=== PATIENT | male | born 1965 | race African-American/Black ===

== ENCOUNTER 2021-02-15 11:29 | Inpatient (IN) | payer BC ==
[2021-02-15 12:28] VITALS: BMI 29.0
[2021-02-15] MEDS ORDERED: ACETAMINOPHEN 325 MG TABLET (FP) ONE (13:12)
[2021-02-15] MEDS ORDERED: MAGNESIUM HYDROX 2400MG/30ML ORAL SUSPENSION 30 ML CUP PO PRN (13:14)
[2021-02-15] MEDS ORDERED: MAGNESIUM CITRATE 300 ML BOTTLE PO PRN (13:14)
[2021-02-15] MEDS ORDERED: ACETAMINOPHEN 325 MG TABLET (FP) PO PRN ×2 (13:14)
[2021-02-15] MEDS ORDERED: LORazepam 1 MG TABLET PO PRN (13:14)
[2021-02-15] MEDS ORDERED: IBUPROFEN 400 MG TABLET (FP) PO PRN (13:14)
[2021-02-15] MEDS ORDERED: MAG HYDROX/AL HYDROX/SIMETH 30 ML UNIT-DOSE CUP PO PRN (13:14)
[2021-02-15] MEDS ORDERED: BISMUTH SUBSALICYLATE 524 MG/30 ML PO PRN (13:14)
[2021-02-15] MEDS ORDERED: MENTHOL/PHENOL 1 EACH UD MM PRN (13:14)
[2021-02-15] MEDS ORDERED: ONDANSETRON *ODT* 4 MG TABLET SL PRN (13:14)
[2021-02-15] MEDS ORDERED: METHOCARBAMOL 500 MG TABLET PO PRN (13:14)
[2021-02-15] MEDS ORDERED: ACETAMINOPHEN 325 MG TABLET (FP) PO ONE (13:18)
[2021-02-15] MEDS: hydrOXYzine PAMOATE 25 MG CAPSULE (FP) PO SCH ×3 (14:42→23:11)
[2021-02-15] MEDS: PRENATAL VITAMINS W/ FOLIC ACID TABLET (FP) PO SCH (15:06)
[2021-02-15] MEDS: LORazepam 2 MG TABLET PO SCH ×2 (17:52→23:10)
[2021-02-15 19:46] LABS: BILIRUBIN,TOTAL 0.7 mg/dL (0.2-1); TOT PROT 8.2 g/dl (6.4-8.2)
[2021-02-15 19:49] LABS: HEMATOCRIT 47.5 % (35.4-49); HEMOGLOBIN 15.6 GM/dL (11.7-16.9); MCH 30.5 pg (25.7-33.7); MEAN CELL VOLUME 92.5 fl (80-96); MEAN PLT VOLUME 8.6 fl (7.5-11.1); PLATELET COUNT 299 K/MM3 (134-434); RBC 5.13 M/mm3 (4.00-5.60); RDW 14.2 % (11.9-15.9); WHITE BLOOD COUNT 15.8 K/mm3 (4.0-10.0)
[2021-02-15 19:53] LABS: ALBUMIN 4.4 g/dl (3.4-5.0); BLOOD UREA NITROGEN 15.4 mg/dL (7-18); CALCIUM 9.8 mg/dL (8.5-10.1)
[2021-02-15 19:56] LABS: CREATININE 1.5 mg/dL (0.55-1.3)
[2021-02-15 20:35] LABS: HIV INTERPRETATION NEGATIVE (NEGATIVE)
[2021-02-15] MEDS: MELATONIN 5 MG TABLETS PO SCH (23:10)
[2021-02-15] MEDS: THIAMINE HCL 100 MG TABLET (FP) PO SCH (23:11)
[2021-02-16] MEDS: LORazepam 2 MG TABLET PO SCH ×4 (06:00→22:52)
[2021-02-16] MEDS: hydrOXYzine PAMOATE 25 MG CAPSULE (FP) PO SCH (06:01)
[2021-02-16] MEDS ORDERED: hydrOXYzine PAMOATE 25 MG CAPSULE (FP) PO PRN (08:29)
[2021-02-16] MEDS: PRENATAL VITAMINS W/ FOLIC ACID TABLET (FP) PO SCH (10:45)
[2021-02-16] MEDS: THIAMINE HCL 100 MG TABLET (FP) PO SCH (22:53)
[2021-02-16] MEDS: MELATONIN 5 MG TABLETS PO SCH (22:53)
[2021-02-17] MEDS: LORazepam 1 MG TABLET PO SCH ×4 (06:43→22:40)
[2021-02-17 10:11] LABS: BASO % 0.8 % (0-2.0); HEMATOCRIT 46.8 % (35.4-49); HEMOGLOBIN 15.7 GM/dL (11.7-16.9); LYMPH % 28.8 % (8-40); MCH 30.7 pg (25.7-33.7); MCHC 33.5 g/dl (32.0-35.9); MEAN CELL VOLUME 91.8 fl (80-96); MEAN PLT VOLUME 8.2 fl (7.5-11.1); MONO % 8.8 % (3.8-10.2); NEUT % 57.6 % (42.8-82.8); PLATELET COUNT 285 K/MM3 (134-434); RDW 13.8 % (11.9-15.9); WHITE BLOOD COUNT 6.8 K/mm3 (4.0-10.0)
[2021-02-17 10:18] LABS: ALBUMIN 3.6 g/dl (3.4-5.0); CALCIUM 9.2 mg/dL (8.5-10.1)
[2021-02-17 10:19] LABS: BLOOD UREA NITROGEN 17.5 mg/dL (7-18)
[2021-02-17 10:22] LABS: CREATININE 1.4 mg/dL (0.55-1.3)
[2021-02-17 10:23] LABS: BILIRUBIN,TOTAL 0.6 mg/dL (0.2-1); TOT PROT 7.1 g/dl (6.4-8.2)
[2021-02-17] MEDS: PRENATAL VITAMINS W/ FOLIC ACID TABLET (FP) PO SCH (10:32)
[2021-02-17] MEDS: THIAMINE HCL 100 MG TABLET (FP) PO SCH (22:39)
[2021-02-17] MEDS: MELATONIN 5 MG TABLETS PO SCH (22:39)
[2021-02-18] MEDS ORDERED: LORazepam 0.5 MG TABLET PO PRN
[2021-02-18] MEDS: LORazepam 0.5 MG TABLET PO SCH ×4 (07:44→22:52)
[2021-02-18] MEDS: PRENATAL VITAMINS W/ FOLIC ACID TABLET (FP) PO SCH (10:38)
[2021-02-18] MEDS: THIAMINE HCL 100 MG TABLET (FP) PO SCH (22:52)
[2021-02-18] MEDS: MELATONIN 5 MG TABLETS PO SCH (22:52)
[2021-02-19] MEDS ORDERED: LORazepam 0.5 MG TABLET PO ONE (05:00)
[2021-02-19 09:33] VITALS: BP 136/99; PULSE 60; TEMP 96.9
[2021-02-19] MEDS: PRENATAL VITAMINS W/ FOLIC ACID TABLET (FP) PO SCH (09:56)
== END 2021-02-19 10:00 | disposition other institution (70) | DRG 774 ==
LOC: YASAS 11:29 → Y3N 13:20
PROVIDERS: ADMIT Allergy & Immunology; ATTEND Allergy & Immunology
PROC: HZ2ZZZZ Detoxification Services for Substance Abuse Treatment (ICD-10-PCS; principal; 2021-02-15)
DX: F10.230 Alcohol dependence with withdrawal, uncomplicated (principal); F14.20 Cocaine dependence, uncomplicated; N17.9 Acute kidney failure, unspecified; D72.829 Elevated white blood cell count, unspecified; Z87.891 Personal history of nicotine dependence; Z91.018 Allergy to other foods
CPT/HCPCS: 36415; 80053; 85025; 85027; 86780; 87389; C9803; U0003; U0005